=== PATIENT | female | born 2000 | race Hispanic/Latino ===

== ENCOUNTER 2018-07-23 08:51 | Emergency (ER) | payer OTHER, SELFPAY ==
[2018-07-23] MEDS ORDERED: Ibuprofen 200 MG TAB ONE (09:39)
--- NOTE | 2018-07-23 12:58 | RAD ---
LEFT ELBOW 4 VIEWS: DATE: 07/23/2018. FINDINGS: There is a subtle radial head fracture along with a joint effusion. The ulna appears intact. A tiny bony density along the distal humerus anteromedially is probably a small supracondylar spur. IMPRESSION: Subtle nondisplaced radial head fracture. POS: HOME
--- NOTE | 2018-07-23 13:01 | RAD ---
LEFT FOREARM 2 VIEWS: DATE: 07/23/2018. FINDINGS: The shafts of the radius and ulna appear intact. The elbow films showed a subtle radial head fractur e which is just barely discernible on these films as well. There is no displacement. The joint effu mirian at the elbow can be seen. IMPRESSION: Subtle radial head fracture. POS: HOME
== END 2018-07-23 09:54 | disposition home or self-care (01) ==
LOC: BURERS 08:51
DX: S52.125A Nondisplaced fracture of head of left radius, initial encounter for closed fracture (principal); W18.30XA Fall on same level, unspecified, initial encounter

== ENCOUNTER 2025-02-27 02:13 | Emergency (ER) | payer BC, OTHER ==
[2025-02-27 03:31] LABS: Glucose, Urine (Dipstick) Negative (Negative); Leukocyte Small (Negative); Protein, Urine (Dipstick) Negative (Neg-Trace); Specific Gravity, Urine 1.020 (1.005-1.030)
[2025-02-27 03:33] LABS: #Basophils 0.0 thou/uL (0.0-0.2); #Eosinophils 0.1 thou/uL (0.0-0.7); #Lymphocytes 2.4 thou/uL (1.20-3.40); #Monocytes 0.5 thou/uL (0.11-0.59); #Neutrophils 5.4 thou/uL (1.40-6.50); %Basophils 0.4 % (0.0-1.0); %Eosinophils 0.7 % (0.0-10.0); %Lymphocytes 28.5 % (21.0-51.0); %Monocytes 6.4 % (0.0-10.0); %Neutrophils 64.0 % (42.0-75.0); Hematocrit 37.0 % (36.0-47.0); Hemoglobin 12.4 g/dL (12.0-16.0); Mean Corpuscular Hemoglobin 30.1 pg (27.0-31.0); Mean Corpuscular Volume 89.8 fl (78.0-98.0); Platelet Count 190 10x3/uL (130-400); Red Blood Cell (RBC) Count 4.12 mill/uL (4.20-5.40); White Blood Cell (WBC) Count 8.4 10x3/uL (4.8-10.8)
[2025-02-27 03:38] LABS: Bacteria/HPF 1+ HPF (None Seen); CAUTI Indications for Culture Pregnancy; RBC/HPF 0-3 HPF (0-3)
[2025-02-27 03:40] LABS: Urine Culture Reflex Yes Yes
[2025-02-27 03:47] LABS: ALT (SGPT) 12 U/L (Less than 34); AST (SGOT) 15 U/L (11-34); Albumin 2.9 g/dL (3.1-4.5); Alkaline Phosphatase 160 U/L (40-110); Anion Gap 16 mmol/L (10-20); BUN (Urea Nitrogen) 8 mg/dL (7.0-18.7); Bilirubin, Total 0.2 mg/dL (0.3-1.2); Calc. Creatinine Clearance 0 mL/min (70-130); Calcium 9.8 mg/dL (7.8-10.44); Carbon Dioxide 19 mmol/L (22-29); Chloride 109 mmol/L (98-107); Globulin 4.0 g/dL (2.4-3.5); Glucose 86 mg/dL (70-105); Potassium 3.9 mmol/L (3.5-5.1); Sodium 140 mmol/L (136-145)
== END 2025-02-27 04:07 | disposition home or self-care (01) ==
LOC: BURERS 02:13
DX: L29.9 Pruritus, unspecified (principal)
CPT/HCPCS: 80053; 81001; 85025; 87086; 99283